=== PATIENT | male | born 1980 | race Caucasian/White ===

== ENCOUNTER 2023-05-26 04:20 | Emergency (ER) | payer BC ==
[~2023-05-26] VITALS: Ht 185.4 cm; Wt 81.6 kg
[2023-05-26] MEDS ORDERED: LISD70CA PO ×2 (04:27)
[2023-05-26 04:30] VITALS: BP 120/70; PULSE 60; RESP 20; TEMP 98.6; O2SAT 100
[2023-05-30] MEDS ORDERED: LISD70CA PO (16:10)
== END 2023-05-26 04:36 | disposition home or self-care (01) ==
LOC: ER 04:20 → EEVIPCON 04:20 → ER 04:36
DX: F90.9 Attention-deficit hyperactivity disorder, unspecified type (principal); Z76.0 Encounter for issue of repeat prescription